=== PATIENT | male | born 1955 | race Caucasian/White ===

== ENCOUNTER 2017-04-20 14:21 | Observation (INO) | payer OTHER ==
[~2017-04-20] VITALS: Ht 185.4 cm; Wt 101.0 kg
--- NOTE | ~2017-04-20 | EKG ---
PATIENT: TIBURCIO SIGALA UNIT #: [id number] Ventricular Rate: 73 BPM Atrial Rate: 73 BPM P-R Interval: 176 ms QRS Duration: 88 ms Q-T Interval: 418 ms QTC Calculation(Bezet): 460 ms P Fulton: 42 degrees Calculated R Fulton: -22 degrees Calculated T Fulton: 20 degrees Diagnosis Line: Normal sinus rhythm Diagnosis Line: Normal ECG Diagnosis Line: When compared with ECG of 13-JUN-2016 04:04, Diagnosis Line: No significant change was found Diagnosis Line: Confirmed by CHEPE CROWDER MD ([id number]) on 04/22/2017 Diagnosis Line: 10:53:42 PM INTERPRETING MD: VEL ERNST
--- NOTE | ~2017-04-20 | HP ---
Unit #: [id number] #: [id number] Patient: TIBURCIO SIGALA [id number] [facility] [address] [facility]. [place], [place] [address] [id number] I MR#: [id number] NAME: TIBURCIO SIGALA ROOM: 65773 Age: 61 Sex: M Admission Date: 04/20/2017 : 1955 Attending Physician: Ivon Tenorio M.D. Primary Care Physician: Jaiden Henriquez M.D. HISTORY AND PHYSICAL CHIEF COMPLAINT Feet and leg swelling. HISTORY OF PRESENT ILLNESS The patient is a 61-year-old male with a past medical history of cirrhosis secondary to alcohol abuse, hypertension, and GERD, who presented to the emergency department for evaluation of the above. History is obtained from chart review and discussion with ER staff due to the patient's altered mental status. The patient has apparently not reliably been taking his medication. He has had increasing lower extremity edema for the past week. His last drink was reportedly on the way to the hospital. He denies any chest pain and no cough or cold symptoms. In the emergency department, initial pulse and blood pressure were 76 and 125/69, respectively. Ammonia level is 108. Platelets are 34,000. AST and ALT are 104 and 31, respectively. Alcohol level is 480. He was given 25 mL of lactulose, as well as 40 mg of Lasix in the emergency department. He is being admitted to [facility] for evaluation and further treatment. PAST MEDICAL HISTORY 1. Admission to [facility] June 13, 2016, for alcohol withdrawal. 2. Cirrhosis secondary to alcohol abuse with history of thrombocytopenia and alcohol-withdrawal seizures. 3. Gastroesophageal reflux disease. PAST SURGICAL HISTORY Inguinal hernia repair. SOCIAL HISTORY The patient lives with his . He continues to drink. Per record review, he drinks a fifth of liquor daily. His last drink was on the way to the hospital. There is no tobacco use. He has a walker at home. FAMILY HISTORY Notable for coronary artery disease. ALLERGIES No known allergies. HOME MEDICATIONS Unit #: [id number] #: [id number] Patient: TIBURCIO SIGALA 1. Lactulose. 2. Amlodipine. Home medications will need to be reviewed and verified. REVIEW OF SYSTEMS A complete review of systems is negative except as indicated in the History of Present Illness but somewhat limited due to the patient's altered mental status. PHYSICAL EXAMINATION VITAL SIGNS: Temperature is 97.8, pulse 76, respirations 18, blood pressure 125/69, and oxygen saturation is 98% on room air. GENERAL: Patient is a male who is sleeping but wakes to voice. Patient smells of alcohol. HEENT: Head is atraumatic. Mucous membranes are moist. NECK: Supple. Trachea is midline. CARDIOVASCULAR: Regular rate and rhythm. LUNGS: Clear to auscultation bilaterally with no increased work of breathing. ABDOMEN: Soft and nontender with bowel sounds present in all four quadrants. EXTREMITIES: With 3+ pitting edema to the knee. NEUROLOGIC: Patient is sleeping but wakes to voice. He is oriented to person, and he knows he is in a hospital. He is moving all extremities. PSYCHIATRIC: Patient demonstrates poor judgment and insight. SKIN: Skin of examined areas is warm and dry. DIAGNOSTIC STUDIES LABORATORY: Troponin is less than 0.05. Ammonia level is 108. INR is 1.4. Complete blood count is notable for platelets of 34,000. BNP is 55. Comprehensive metabolic panel notable for chloride of 113, glucose 151, calcium is 7.4 but corrects when albumin of 2.7 is accounted for, AST 104, alkaline phosphatase 121, and total bilirubin 3.1. Alcohol level is 480. Urinalysis essentially normal. Urine toxicology screen is negative. IMAGING: Chest x-ray shows patchy subsegmental atelectasis in the retrocardiac left lower lobe. CARDIOLOGY: EKG shows normal sinus rhythm with a rate of 73 beats per minute. ASSESSMENT The patient is a 61-year-old male with: 1. Altered mental status secondary to #2. 2. Hepatic encephalopathy with an initial ammonia level of 108. The patient received 25 mL of lactulose in the emergency department. 3. Alcohol abuse with intoxication. Alcohol level is 480. 4. Cirrhosis secondary to alcohol abuse. 5. Bilateral lower extremity edema secondary to noncompliance with medications. The patient was on Lasix in the past. He does not appear to have been on Spironolactone. Home medications will need to be reviewed and verified. 6. Coagulopathy with an INR of 1.4. 7. Thrombocytopenia secondary to cirrhosis and alcohol abuse. The patient's platelet count has been as low as 21,000 on June 11, 2016. It is 34 today. 8. Hypertension. Unit #: [id number] #: [id number] Patient: TIBURCIO SIGALA 9. Gastroesophageal reflux disease. PLAN 1. Admit for observation to intermediate level. 2. A 1500 mL fluid-restricted, 2 gram sodium diet if passes bedside swallow. 3. Bedrest. 4. Fall precautions. 5. Sitter. 6. TSH, B12, and folate. 7. Neuro checks. 8. Lactulose 30 mL p.o. q.6 hours. 9. software product manager/social work consult regarding alcohol abuse. 10. Thiamine, multivitamin, and folic acid. 11. CIWA scoring with p.r.n. Ativan. 12. Librium 25 mg p.o. q.6 hours. 13. Restart nadolol 20 mg p.o. daily that the patient was on in the past. Also restart Xifaxan 550 mg p.o. b.i.d. Again, the patient was on this in the past. 14. Check magnesium level. 15. Potassium/magnesium protocol. 16. Restart home dose of Lasix. 17. Serial cardiac enzymes. 18. Check CPK. 19. PT/OT to evaluate and treat. 20. Repeat labs in the morning including magnesium, INR, and ammonia levels. 21. Additional workup and consultants based on above. 1. Dictated by Ivon Tenorio M.D. AW/zi TD: 04/20/2017 20:28 JOB #: [id number] HISTORY AND PHYSICAL Page 1 of 1 X Ivon Tenorio MD X HISTORY AND PHYSICAL
--- NOTE | ~2017-04-20 | CR72 ---
[facility] A Service of [facility] & [facility] RADIOLOGY TEXT RESULTS PATIENT: TIBURCIO SIGALA LOCATION: [facility] 319-01 : [birth year] UNIT #: [id number] AGE: [address]: Ivon Tenorio MD SEX: M ORDER DR: [id number] [facility] [address] [facility]. [place], [place] [address] [id number] MR#: [id number] Acc #: [id number] NAME: TIBURCIO SIGALA : 1955 SEX: M STUDY DATE/TIME: 04/20/2017 14:58 UNIT: [facility] ROOM: STUDY DESCRIPTION: CR Chest Single View Portable Attending Physician: Lexie Avila M.D. Ordering Physician: Lexie Avila M.D. Primary Care Physician: Jaiden Henriquez M.D. MEDICAL IMAGING REPORT This report is preliminary unless electronic signature is present EXAM Portable chest HISTORY Chest pain and lower extremity swelling since yesterday. Congestion. FINDINGS Mild patchy subsegmental atelectasis or infiltrate in the retrocardiac left lower lobe. The remainder of the lungs are clear. Low lung volumes. Cardiac and mediastinal contours are within normal limits. Dictated by... Hawk Boyer M.D. THIS IS AN ELECTRONICALLY VERIFIED REPORT Hawk Boyer M.D. at 04/20/2017 11:21 PM DFL/psc TD: 04/20/2017 17:15 JOB #: [id number] MEDICAL IMAGING REPORT Page 1 of 1 COPY
--- NOTE | ~2017-04-20 | DS ---
Unit #: [id number] #: [id number] Patient: TIBURCIO SIGALA [id number] [address] [address] [id number] I MR#: [id number] NAME: TIBURCIO SIGALA ROOM: 319 Age: 61 Sex: M Admission Date: 04/20/2017 : 1955 Discharge Date: 04/21/2017 Attending Physician: Nery Hinton M.D. Primary Care Physician: Jaiden Henriquez M.D. DISCHARGE SUMMARY REVISED REPORT See Addendum PRINCIPAL DIAGNOSES 1. Mild hepatic encephalopathy, now resolved. 2. Acute alcohol intoxication. 3. Chronic alcohol abuse. 4. Alcohol-induced cirrhosis. 5. Chronic thrombocytopenia secondary to chronic alcohol abuse with associated cirrhosis and splenomegaly. 6. Bilateral lower extremity edema secondary to medication noncompliance. 7. Hypertension. 8. Gastroesophageal reflux disease. 9. Moderate protein malnutrition. 10. Hypokalemia. CONSULTANTS None. PROCEDURES Chest x-ray on April 20, 2017, with subsegmental atelectasis in the left lower lobe. CLINICAL HISTORY/HOSPITAL COURSE Mr. Sigala is a 61-year-old male with a known history of alcohol-induced cirrhosis who presents to the emergency department with increasing lower extremity edema and increasing confusion. The patient's ammonia level is greater than 100 upon presentation. The patient was subsequently placed on observation for evaluation. The patient was placed back on Xifaxan and scheduled lactulose. He also complains of increasing lower extremity edema but, unfortunately, his and his primary caregiver did not fill his medications for about there weeks. Hence, patient's admission. This morning, patient is awake and at his baseline per his primary caregiver. Patient is ambulating without difficulty and ammonia is down to 83 but he is awake and oriented and talking. I am going to place patient back on his home medications and he can be discharged home. DISCHARGE CONDITION Stable. DISCHARGE STATUS Discharge to home. Unit #: [id number] #: [id number] Patient: TIBURCIO SIGALA DISCHARGE MEDICATIONS 1. Lactulose 20 g per 30 mL, 20 g p.o. b.i.d. 2. Xifaxan 550 mg b.i.d. 3. Norvasc 10 mg daily. 4. Nadolol 20 mg daily. 5. Lasix 20 mg daily. 6. Potassium chloride 10 mEq p.o. daily. 7. Spironolactone 25 mg daily. 8. Folic acid 1 mg daily. 9. Thiamine 100 mg daily. DISCHARGE INSTRUCTIONS Patient was instructed to follow a high protein low salt diet. He can increase activity as tolerated. FOLLOWUP Patient will follow up with is primary care provider, Dr. Henriquez, in one week. Dictated by... Julius Carrillo/cory TD: 04/22/2017 12:33 JOB #: [id number] ADDENDUM Please note, I was contacted by patient's following his discharge that he appears to drink perhaps a significant amount at home, and she is concerned about withdrawal. Thus, I have written him a tapering dose of Librium 25 mg 1 tablet t.i.d. for 3 days, then 1 b.i.d. for 3 days, then 1 daily for 3 days. Dictated by... Julius Carrillo TD: 04/23/2017 17:33 JOB #: [id number] CC: Faina/betoision Please Delete DISCHARGE SUMMARY Page 1 of 1 X Nery Hinton MD X DISCHARGE SUMMARY
--- NOTE | ~2017-04-20 | DS ---
Unit #: [id number] #: [id number] Patient: TIBURCIO SIGALA [id number] [address] [address] [id number] I MR#: [id number] NAME: TIBURCIO SIGALA ROOM: 319 Age: 61 Sex: M Admission Date: 04/20/2017 : 1955 Discharge Date: 04/21/2017 Attending Physician: Nery Hinton M.D. Primary Care Physician: Jaiden Henriquez M.D. DISCHARGE SUMMARY PRINCIPAL DIAGNOSES 1. Mild hepatic encephalopathy, now resolved. 2. Acute alcohol intoxication. 3. Chronic alcohol abuse. 4. Alcohol-induced cirrhosis. 5. Chronic thrombocytopenia secondary to chronic alcohol abuse with associated cirrhosis and splenomegaly. 6. Bilateral lower extremity edema secondary to medication noncompliance. 7. Hypertension. 8. Gastroesophageal reflux disease. 9. Moderate protein malnutrition. 10. Hypokalemia. CONSULTANTS None. PROCEDURES Chest x-ray on April 20, 2017, with subsegmental atelectasis in the left lower lobe. CLINICAL HISTORY/HOSPITAL COURSE Mr. Sigala is a 61-year-old male with a known history of alcohol-induced cirrhosis who presents to the emergency department with increasing lower extremity edema and increasing confusion. The patient's ammonia level is greater than 100 upon presentation. The patient was subsequently placed on observation for evaluation. The patient was placed back on Xifaxan and scheduled lactulose. He also complains of increasing lower extremity edema but, unfortunately, his and his primary caregiver did not fill his medications for about there weeks. Hence, patient's admission. This morning, patient is awake and at his baseline per his primary caregiver. Patient is ambulating without difficulty and ammonia is down to 83 but he is awake and oriented and talking. I am going to place patient back on his home medications and he can be discharged home. DISCHARGE CONDITION Stable. DISCHARGE STATUS Discharge to home. DISCHARGE MEDICATIONS Unit #: [id number] #: [id number] Patient: TIBURCIO SIGALA 1. Lactulose 20 g per 30 mL, 20 g p.o. b.i.d. 2. Xifaxan 550 mg b.i.d. 3. Norvasc 10 mg daily. 4. Nadolol 20 mg daily. 5. Lasix 20 mg daily. 6. Potassium chloride 10 mEq p.o. daily. 7. Spironolactone 25 mg daily. 8. Folic acid 1 mg daily. 9. Thiamine 100 mg daily. DISCHARGE INSTRUCTIONS Patient was instructed to follow a high protein low salt diet. He can increase activity as tolerated. FOLLOWUP Patient will follow up with is primary care provider, Dr. Henriquez, in one week. Dictated by... Nery Hinton M.D. HERNESTO/cory TD: 04/22/2017 12:33 JOB #: [id number] DISCHARGE SUMMARY Page 1 of 1 X Nery Hinton MD X DISCHARGE SUMMARY
[2017-04-20 15:20] LABS: POC - CKMB 7.5 ng/mL (0.0-7.9); POC - TROPONIN <0.05 ng/mL (<=0.05)
[2017-04-20 15:25] LABS: INR 1.4; PARTIAL THROMBOPLASTIN TIME 32.6 SECONDS (23.5-31.3); PROTHROMBIN TIME (PATIENT) 15.6 SECONDS (10.0-11.7)
[2017-04-20 15:32] LABS: BASOPHIL# 0.3 X10e3 (0-0.3); BASOPHIL% 3.6 % (0-2.5); EOSINOPHIL# 0.3 X10e3 (0-0.7); EOSINOPHIL% 4.4 % (0.0-7.0); HEMATOCRIT 40.2 % (38.0-50.0); HEMOGLOBIN 13.3 gm/dL (13.0-16.0); LYMPHOCYTE# 3.5 X10e3 (1.0-3.5); MEAN CELL VOLUME 98.3 FL (83-96); MEAN CORPUSCULAR HEMOGLOBIN 32.4 PG (28-34); MEAN PLATELET VOLUME 8.9 FL (6.5-11.5); MONOCYTE# 0.8 X10e3 (0-1.0); MONOCYTE% 11.6 % (3.0-12.0); NEUTROPHIL# 2.2 X10e3 (1.5-7.1); NEUTROPHIL% 31.4 % (40-75); RED BLOOD COUNT 4.09 X10e (3.90-5.60); RED CELL DISTRIBUTION WIDTH 16.5 % (11.0-15.5); WHITE BLOOD COUNT 7.1 X10e3 (4.0-10.5)
[2017-04-20 15:36] LABS: DIFF IND YES; PLATELET COUNT 34 X10e3 (140-420)
[2017-04-20 15:40] LABS: PLATELET ESTIMATE DECREASED (NORMAL); RBC NORMAL YES
[2017-04-20 15:56] LABS: ALBUMIN SERUM 2.7 g/dL (3.5-5.0); BILIRUBIN, DIRECT 1.5 mg/dL (0.0-0.2); BILIRUBIN,INDIRECT 1.6 mg/dL (0.0-0.9); BILIRUBIN,TOTAL 3.1 mg/dL (0.2-2.0); CALCIUM SERUM 7.4 mg/dL (8.4-10.2); CREATININE SERUM 0.6 mg/dL (0.6-1.4); GLOM FILT RATE Estimated 109.3 mL/min (>60); POTASSIUM 3.6 mmol/L (3.5-5.1); PROTEIN TOTAL SERUM 6.5 g/dL (6.0-8.3)
[2017-04-20 17:16] LABS: URINE SOURCE CLEAN CATCH
[2017-04-20 17:19] LABS: POC - CKMB 8.1 ng/mL (0.0-7.9); POC - TROPONIN <0.05 ng/mL (<=0.05)
[2017-04-20 17:27] LABS: URINE APPEARANCE CLEAR; URINE BILIRUBIN NEG (NEG); URINE BLOOD NEG (NEG); URINE COLOR YELLOW; URINE GLUCOSE NEG (NEG); URINE KETONE NEG (NEG); URINE LEUKOCYTE ESTERASE NEG (NEG); URINE NITRATE NEG (NEG); URINE PROTEIN NEG (NEG); URINE SPECIFIC GRAVITY 1.008 (1.003-1.035)
[2017-04-20 17:36] LABS: AMPHETAMINE NEG (NEG); BARBITURATES NEG (NEG); BENZODIAZEPINES NEG (NEG); COCAINE NEG (NEG); CULTURE INDICATED? NO; MARIJUANA NEG (NEG); OPIATES NEG (NEG); TRICYCLIC ANTIDEPRESSANTS NEG (NEG); U METHADONE NEG (NEG)
[2017-04-20] MEDS ORDERED: LOPRESSOR PO (17:57)
[2017-04-20] MEDS ORDERED: NORVASC10 MG PO (17:57)
[2017-04-20] MEDS ORDERED: LASIX20 MG PO ×2 (17:57→18:02)
[2017-04-20] MEDS ORDERED: KLOR-CON SPRIN10 MEQ PO (17:58)
[2017-04-20] MEDS ORDERED: FOLIC ACID PO (17:59)
[2017-04-20] MEDS ORDERED: VITAMIN B1 PO (17:59)
[2017-04-20] MEDS ORDERED: LACTULOSE PO (18:01)
[2017-04-20] MEDS ORDERED: REVIA50 MG PO (18:02)
[2017-04-20] MEDS ORDERED: BACLOFEN10 MG PO (18:02)
[2017-04-20 20:50] LABS: CREATININE SERUM 0.6 mg/dL (0.6-1.4); GLOM FILT RATE Estimated 109.3 mL/min (>60)
[2017-04-20 20:54] LABS: MAGNESIUM 1.8 mg/dL (1.6-3.0)
[2017-04-20 21:22] LABS: FOLATE (FOLIC ACID) 18.3 ng/mL (>5.8)
[2017-04-21 05:49] LABS: INR 1.4; PARTIAL THROMBOPLASTIN TIME 33.4 SECONDS (23.5-31.3); PROTHROMBIN TIME (PATIENT) 15.4 SECONDS (10.0-11.7)
[2017-04-21 06:04] LABS: BASOPHIL# 0.2 X10e3 (0-0.3); BASOPHIL% 3.4 % (0-2.5); EOSINOPHIL# 0.3 X10e3 (0-0.7); EOSINOPHIL% 4.8 % (0.0-7.0); HEMATOCRIT 40.9 % (38.0-50.0); HEMOGLOBIN 13.8 gm/dL (13.0-16.0); LYMPHOCYTE# 2.3 X10e3 (1.0-3.5); LYMPHOCYTE% 43.3 % (17.0-45.0); MEAN CELL VOLUME 97.4 FL (83-96); MEAN CORPUSCULAR HEMOGLOBIN 32.8 PG (28-34); MEAN CORPUSCULAR HGB CONC 33.7 g/dL (30-36); MEAN PLATELET VOLUME 8.9 FL (6.5-11.5); MONOCYTE# 0.6 X10e3 (0-1.0); MONOCYTE% 12.1 % (3.0-12.0); NEUTROPHIL# 1.9 X10e3 (1.5-7.1); NEUTROPHIL% 36.4 % (40-75); RED CELL DISTRIBUTION WIDTH 16.3 % (11.0-15.5); WHITE BLOOD COUNT 5.2 X10e3 (4.0-10.5)
[2017-04-21 06:10] LABS: ALBUMIN SERUM 2.6 g/dL (3.5-5.0); BILIRUBIN,TOTAL 3.3 mg/dL (0.2-2.0); BUN/CREATININE RATIO 13.33; CALCIUM SERUM 7.5 mg/dL (8.4-10.2); CREATININE SERUM 0.6 mg/dL (0.6-1.4); GLOM FILT RATE Estimated 109.3 mL/min (>60); MAGNESIUM 1.9 mg/dL (1.6-3.0); POTASSIUM 3.3 mmol/L (3.5-5.1); PROTEIN TOTAL SERUM 6.1 g/dL (6.0-8.3)
[2017-04-21 06:17] LABS: DIFF IND NO; PLATELET COUNT 26 X10e3 (140-420)
[2017-04-21 06:42] LABS: %MB 1.3 % (0.0-4.0); MB 12.5 ng/ml
[2017-04-21] MEDS ORDERED: ALDACTONE25 MG PO (12:09)
[2017-04-21] MEDS ORDERED: CORGARD20 MG PO (12:10)
[2017-04-21] MEDS ORDERED: LACTULOSE20 GM/30 M PO (12:10)
[2017-04-21] MEDS ORDERED: XIFAXAN550 MG PO (12:11)
[2017-04-21] MEDS ORDERED: LIBRIUM25 M1 PO (15:15)
== END 2017-04-21 15:58 | disposition home or self-care (01) | DRG 442 ==
LOC: CED 14:21 → CEDOF 18:50 → CED 19:27 → C3A PCU 21:50 → CEDOF 21:50 → C3A PCU 04-21 07:27
PROVIDERS: Family Medicine; Student in an Organized Health Care Education/Training Program
DX: K72.90 Hepatic failure, unspecified without coma (principal); R60.0 Localized edema; F10.129 Alcohol abuse with intoxication, unspecified; K70.30 Alcoholic cirrhosis of liver without ascites; D68.9 Coagulation defect, unspecified; D69.6 Thrombocytopenia, unspecified; I10 Essential (primary) hypertension; K21.9 Gastro-esophageal reflux disease without esophagitis; R60.9 Edema, unspecified; Z79.899 Other long term (current) drug therapy; Z91.14 Patient's other noncompliance with medication regimen
CPT/HCPCS: 36415; 71010; 80048; 80053; 80076; 80307; 81003; 82140; 82550; 82553; 82565; 82607; 82746; 83735; 83880; 84132; 84443; 84484; 85025; 85610; 85730; 93005; 96374; 96375; 96376; 97165; 99285; G0378; G0480; G8987-GO; G8988-GO; G8989-GO; J1940; J3475